=== PATIENT | male | born 1995 | race Caucasian/White ===

== ENCOUNTER 2018-06-23 21:58 | Emergency (ER) | payer BC ==
[2018-06-23] MEDS ORDERED: Sodium Chloride 0.9% 1000 ML 1,000 ML IV STA ×2 (22:24→22:31)
[2018-06-23] MEDS ORDERED: Sodium Chloride 0.9% 1000 ML 1,000 ML ONE ×3 (22:40→23:39)
[2018-06-23 22:48] LABS: Appearance CLEAR (CLEAR); Bilirubin NEGATIVE (NEGATIVE); Blood LARGE Ery/ul (0-5); Glucose NEGATIVE (NEGATIVE); Ketones NEGATIVE (NEGATIVE); Leukocyte Esterase NEGATIVE (NEGATIVE); Nitrite NEGATIVE (NEGATIVE); Protein,Urine Dip NEGATIVE (Negative); Specific Gravity 1.004 (1.005-1.025); Urobilinogen NEGATIVE mg/dL (0-1)
[2018-06-23 23:00] LABS: Amphetamine,Urine NEGATIVE (NEGATIVE); Barbiturate,Urine NEGATIVE (NEGATIVE); Benzodiazepine,Urine NEGATIVE (NEGATIVE); Cocaine,Urine NEGATIVE (NEGATIVE); Methadone,Urine NEGATIVE (NEGATIVE); Opiate,Urine NEGATIVE (NEGATIVE); PCP,Urine NEGATIVE (NEGATIVE); THC,Urine NEGATIVE (NEGATIVE)
[2018-06-23 23:53] LABS: BASOPHIL % 0.3 % (0.0-0.4); Basophil (Absolute #) 0.02 (0-0.4); Eosinophil % 1.9 % (0.00-5.0); Eosinophil (Absolute #) 0.13 (0-0.5); Granulocyte Absolute (ANC) 3.61 (1.4-6.9); Hematocrit 39.8 % (42-50); Hemoglobin 14.4 gm/dl (12.5-18.0); Lymphocytes % 31.4 % (24.0-44.0); Mean Cell Volume 88.8 fl (78-100); Mean Corpuscular Hemoglobin 32.1 pg (26-32); Mean Corpuscular Hgb Concent. 36.2 g/dl (32-36); Mean Platelet Volume 9.9 fl (6-9.5); Monocyte (Absolute #) 0.83 (0.0-1.3); Monocytes % 12.4 % (0.0-12.0); Platelet Count 288 K/mm3 (150-450); Red Blood Count 4.48 M/mm3 (4.1-5.6); Red Cell Distribution Width 12.8 % (11.5-14.0); White Blood Count 6.7 K/mm3 (4.0-10.5)
[2018-06-24 00:16] LABS: ANION GAP 10.4 MEQ/L (5-15); BLOOD UREA NITROGEN 17 mg/dL (9-20); CHLORIDE 105 mmol/L (98-107); Calcium 9.3 mg/dL (8.4-10.2); Carbon Dioxide 29 mmol/L (22-30); Creatinine 1 0.92 mg/dL (0.66-1.25); Glucose 100 mg/dL (74-106); Potassium 3.4 mmol/L (3.5-5.1); SODIUM 141 mmol/L (137-145)
[2018-06-24 00:24] VITALS: O2SAT 98
[2018-06-24 02:03] VITALS: BP 122/74; PULSE 71
--- NOTE | 2018-06-24 02:03 | ERPHSYRPT ---
- History of Present Illness Time Seen by Provider: 06/23/18 22:10 Source: patient Patient Subjective Stated Complaint: pt is alert and oriented. pt is ambulatory with a steady gait. pt comes in with c/o hematuria. pt states his he was having blood in his urine begining this morning. pt denies flank pain, dysuria, frequency, hesitency, prior kidney stones, or any pain. pt states the only pain he has is from working out a couple days ago. pt urine is clear and yellow. Triage Nursing Assessment: see above Physician History: PATIENT STATES AFTER LIFTING WEIGHTS FOR 2 HOURS YESTERDAY, HE NOTICED HEMATURIA THIS MORNING. DENIES FREQUENCY, URGENCY, DYSURIA, OR ABDOMINAL PAIN. HE COMPLAINS OF LEFT SIDED UPPER ABDOMINAL PAIN. DENIES NAUSEA, EMESIS OR FEVER. Timing/Duration: yesterday Activites at Onset: physical activity Quality: aching Onset Location: left flank Pain Radiation: none Severity of Pain-Max: mild Severity of Pain-Current: none Modifying Factors: Improves With: nothing Associated Symptoms: other (HEMATURIA) Prior abdominal problems: none Sexual intercourse history: non-contributory Allergies/Adverse Reactions: cefaclor Allergy (Verified 06/23/18 22:15) pertussis vaccine,adsorbed Allergy (Verified 06/23/18 22:15) Home Medications: No Reportable Medications [No Reported Medications] 06/23/18 [History] Immunizations Up to Date: Yes - Past Medical History Pertinent Past Medical History: No - Past Surgical History Past Surgical History: Yes Neuro Surgical History: No Pertinent History Cardiac: No Pertinent History Respiratory: No Pertinent History Gastrointestinal: No Pertinent History Genitourinary: No Pertinent History Musculoskeletal: No Pertinent History Male Surgical History: No Pertinent History - Social History Smoking Status: Never smoker Drug Use: none - Review of Systems Constitutional: No Fever, No Chills Eyes: No Symptoms Ears, Nose, & Throat: No Symptoms Respiratory: No Symptoms, No Cough, No Dyspnea Cardiac: No Symptoms, No Chest Pain, No Edema, No Syncope Abdominal/Gastrointestinal: No Symptoms, No Abdominal Pain, No Nausea, No Vomiting, No Diarrhea Genitourinary Symptoms: Hematuria, No Dysuria Musculoskeletal: No Symptoms, No Back Pain, No Neck Pain Skin: No Rash Neurological: No Dizziness, No Focal Weakness, No Sensory Changes Psychological: No Symptoms Endocrine: No Symptoms All Other Systems: Reviewed and Negative - Nursing Vital Signs Nursing Vital Signs: Initial Vital Signs Pulse Rate 90 06/23/18 21:59 Respiratory Rate 18 06/23/18 21:59 Blood Pressure 142/83 06/23/18 21:59 O2 Sat by Pulse Oximetry 98 06/23/18 21:59 Pain Scale Pain Intensity 2 - Physical Exam General Appearance: no apparent distress, alert Eye Exam: PERRL/EOMI Ears, Nose, Throat Exam: pharynx normal, moist mucous membranes Neck Exam: normal inspection, supple Respiratory Exam: normal breath sounds, lungs clear Cardiovascular Exam: regular rate/rhythm, No edema Gastrointestinal/Abdomen Exam: soft, normal bowel sounds, No tenderness Back Exam: normal inspection, other (NO CVA TENDERNESSS), No CVA tenderness Extremity Exam: normal inspection, normal range of motion, No pedal edema Neurologic Exam: alert, oriented x 3, cooperative, sensation nml, No motor deficits Skin Exam: normal color, warm, dry, No rash SpO2 Interpretation: normal SpO2: 98 - CT Exams Abdomen/Pelvis CT Interpretation: Tele-radiologist Report (POSSIBLE UNDESCENDE TESTICLE ON RIGHT) Ordered Tests: Active Orders 24 hr Category Date Time Status IV Insertion STAT Care 06/23/18 22:24 Active ABDOMEN AND PELVIS W/0 CONTRAS [CT] Stat Exams 06/23/18 22:25 Taken CBC W DIFF Stat Lab 06/23/18 22:24 Completed Lactic Acid Stat Lab 06/23/18 22:35 Completed UA W/RFX UR CULTURE Stat Lab 06/23/18 22:33 Completed Urine Triage Profile Stat Lab 06/23/18 22:33 Completed Medication Summary Discontinued Medications Generic Name Dose Route Start Last Admin Trade Name Roni PRN Reason Stop Dose Admin Sodium Chloride 1,000 mls @ 999 mls/hr 06/23/18 22:24 06/23/18 23:40 Sodium Chloride 0.9% 1000 Ml IV 06/23/18 23:24 Infused .Q1H1M STA Infusion Sodium Chloride 1,000 mls @ 999 mls/hr 06/23/18 22:31 06/24/18 02:13 Sodium Chloride 0.9% 1000 Ml IV 06/23/18 23:31 Infused .Q1H1M STA Infusion Sodium Chloride Confirm 06/23/18 22:40 Sodium Chloride 0.9% 1000 Ml Administered 06/23/18 22:41 Dose 1,000 mls @ ud .ROUTE .STK-MED ONE Sodium Chloride Confirm 06/23/18 23:31 Sodium Chloride 0.9% 1000 Ml Administered 06/23/18 23:32 Dose 1,000 mls @ ud .ROUTE .STK-MED ONE Sodium Chloride Confirm 06/23/18 23:39 Sodium Chloride 0.9% 1000 Ml Administered 06/23/18 23:40 Dose 1,000 mls @ ud .ROUTE .STK-MED ONE Lab/Rad Data: Laboratory Result Diagrams 06/23/18 22:24 06/23/18 00:15 Laboratory Results 06/23/18 06/23/18 06/23/18 Range/Units 22:35 22:33 22:33 WBC (4.0-10.5) K/mm3 RBC (4.1-5.6) M/mm3 Hgb (12.5-18.0) gm/dl Hct (42-50) % MCV (78-100) fl MCH (26-32) pg MCHC (32-36) g/dl RDW (11.5-14.0) % Plt Count (150-450) K/mm3 MPV (6-9.5) fl Gran % (36.0-66.0) % Eos # (Auto) (0-0.5) Absolute Lymphs (auto) (1.0-4.6) Absolute Monos (auto) (0.0-1.3) Lymphocytes % (24.0-44.0) % Monocytes % (0.0-12.0) % Eosinophils % (0.00-5.0) % Basophils % (0.0-0.4) % Absolute Granulocytes (1.4-6.9) Basophils # (0-0.4) Sodium (137-145) mmol/L Potassium (3.5-5.1) mmol/L Chloride (98-107) mmol/L Carbon Dioxide (22-30) mmol/L Anion Gap (5-15) MEQ/L BUN (9-20) mg/dL Creatinine (0.66-1.25) mg/dL Estimated GFR ML/MIN Glucose (74-106) mg/dL Lactic Acid 1.2 (0.4-2.0) Calcium (8.4-10.2) mg/dL Urine Color STRAW (YELLOW) Urine Appearance CLEAR (CLEAR) Urine pH 7.0 (5-6) Ur Specific [place] 1.004 (1.005-1.025) Urine Protein NEGATIVE (Negative) Urine Ketones NEGATIVE (NEGATIVE) Urine Blood LARGE (0-5) [place]/ul Urine Nitrite NEGATIVE (NEGATIVE) Urine Bilirubin NEGATIVE (NEGATIVE) Urine Urobilinogen NEGATIVE (0-1) mg/dL Ur Leukocyte Esterase NEGATIVE (NEGATIVE) Urine WBC (Auto) NONE (0-5) /HPF Urine RBC (Auto) NONE (0-2) /HPF U Epithel Cells (Auto) NONE (FEW) /HPF Urine Bacteria (Auto) NONE (NEGATIVE) /HPF Urine Culture Reflexed NO (NO) Urine Glucose NEGATIVE (NEGATIVE) mg/dL Urine Opiates Level NEGATIVE (NEGATIVE) Ur Methadone NEGATIVE (NEGATIVE) Urine Barbiturates NEGATIVE (NEGATIVE) Ur Phencyclidine (PCP) NEGATIVE (NEGATIVE) Urine Amphetamine NEGATIVE (NEGATIVE) U Benzodiazepine Level NEGATIVE (NEGATIVE) Urine Cocaine NEGATIVE (NEGATIVE) Urine Marijuana (THC) NEGATIVE (NEGATIVE) 06/23/18 06/23/18 Range/Units 22:24 00:15 WBC 6.7 (4.0-10.5) K/mm3 RBC 4.48 (4.1-5.6) M/mm3 Hgb 14.4 (12.5-18.0) gm/dl Hct 39.8 L (42-50) % MCV 88.8 (78-100) fl MCH 32.1 H (26-32) pg MCHC 36.2 H (32-36) g/dl RDW 12.8 (11.5-14.0) % Plt Count 288 (150-450) K/mm3 MPV 9.9 H (6-9.5) fl Gran % 54.0 (36.0-66.0) % Eos # (Auto) 0.13 (0-0.5) Absolute Lymphs (auto) 2.10 (1.0-4.6) Absolute Monos (auto) 0.83 (0.0-1.3) Lymphocytes % 31.4 (24.0-44.0) % Monocytes % 12.4 H (0.0-12.0) % Eosinophils % 1.9 (0.00-5.0) % Basophils % 0.3 (0.0-0.4) % Absolute Granulocytes 3.61 (1.4-6.9) Basophils # 0.02 (0-0.4) Sodium 141 (137-145) mmol/L Potassium 3.4 L (3.5-5.1) mmol/L Chloride 105 (98-107) mmol/L Carbon Dioxide 29 (22-30) mmol/L Anion Gap 10.4 (5-15) MEQ/L BUN 17 (9-20) mg/dL Creatinine 0.92 (0.66-1.25) mg/dL Estimated GFR > 60.0 ML/MIN Glucose 100 (74-106) mg/dL Lactic Acid (0.4-2.0) Calcium 9.3 (8.4-10.2) mg/dL Urine Color (YELLOW) Urine Appearance (CLEAR) Urine pH (5-6) Ur Specific [place] (1.005-1.025) Urine Protein (Negative) Urine Ketones (NEGATIVE) Urine Blood (0-5) [place]/ul Urine Nitrite (NEGATIVE) Urine Bilirubin (NEGATIVE) Urine Urobilinogen (0-1) mg/dL Ur Leukocyte Esterase (NEGATIVE) Urine WBC (Auto) (0-5) /HPF Urine RBC (Auto) (0-2) /HPF U Epithel Cells (Auto) (FEW) /HPF Urine Bacteria (Auto) (NEGATIVE) /HPF Urine Culture Reflexed (NO) Urine Glucose (NEGATIVE) mg/dL Urine Opiates Level (NEGATIVE) Ur Methadone (NEGATIVE) Urine Barbiturates (NEGATIVE) Ur Phencyclidine (PCP) (NEGATIVE) Urine Amphetamine (NEGATIVE) U Benzodiazepine Level (NEGATIVE) Urine Cocaine (NEGATIVE) Urine Marijuana (THC) (NEGATIVE) - Departure Departure Disposition: Home Clinical Impression: Microhematuria, UNDESCENDED 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 TAKE COPY OF ABDOMINAL CT SCAN TO APPOINTMENT. VOID THROUGH STRAINER FOR 4 DAYS.
--- NOTE | 2018-06-24 08:07 | XRAY ---
Indication: Left flank pain. Hematuria. Multiple contiguous axial images obtained through the abdomen and pelvis without contrast using renal stone protocol. Comparison: None Lung bases are clear. Heart is not enlarged. No calculus or evidence for obstructive uropathy in either system. Stomach is distended with food/fluid. Noncontrasted stomach and bowel loops appear nonobstructed. Normal appendix. No free fluid/air. There is a 2.6 cm ovoid soft tissue mass in the right lower quadrant adjacent to the inguinal canal, possible undescended testicle. Remaining liver, gallbladder, pancreas, spleen, adrenal glands, kidneys, ureters, bladder, and aorta appear unremarkable for noncontrast exam. Osseous structures intact. No ventral or inguinal hernias. Impression: 1. Negative renal calculus or evidence for obstructive uropathy. 2. Right lower quadrant 2.6 cm ovoid soft tissue mass, possible undescended testicle. 3. Remaining CT abdomen/pelvis without contrast exam is negative. Comment: Preliminary interpretation was made by [facility]. No discrepancy. CTDI 22.96
[2018-06-26 03:23] LABS: CKMB 6.7 ng/mL (0.0-5.0)
== END 2018-06-24 02:28 | disposition home or self-care (01) ==
LOC: ED 21:58
DX: R31.9 Hematuria, unspecified (principal); Q53.10 Unspecified undescended testicle, unilateral
CPT/HCPCS: 36000; 36415; 74176; 80048; 80307; 81001; 82533; 83605; 83874; 85025; 96360; 96361; 99284

== ENCOUNTER 2018-12-18 05:07 | Emergency (ER) | payer BC ==
[2018-12-18] MEDS ORDERED: Sodium Chloride 0.9% 1000 ML 1,000 ML IV STA (05:35)
--- NOTE | 2018-12-18 05:35 | ERPHSYRPT ---
- History of Present Illness Time Seen by Provider: 12/18/18 05:31 Historian: patient, family Patient Subjective Stated Complaint: pt states he has been having lt sided pain intermittently for the last week. states pain has flared up occasionally. c/o nausea, no vomiting. Triage Nursing Assessment: pt alert and oriented, answers questions approp. pt ambulatory with steady gait noted. respirations nonlabored with lungs cta. skin pink warm and dry. abd soft and nontender to light palpation. bowel sounds present x4. Physician History: 23 y/o white male presents with left lower quad abd pain intermittently for a week. Timing/Duration: week(s) (1) Activities at Onset: none Quality: sharpness Abdominal Pain Onset Location: LLQ Pain Radiation: no radiation Severity of Pain-Max: moderate Severity of Pain-Current: mild Associated Symptoms: denies symptoms Previous symptoms: no prior history Allergies/Adverse Reactions: cefaclor Allergy (Verified 12/18/18 05:27) pertussis vaccine,adsorbed Allergy (Verified 12/18/18 05:27) Home Medications: No Reportable Medications [No Reported Medications] 06/23/18 [History] Hx Tetanus, Diphtheria Vaccination/Date Given: Yes Hx Influenza Vaccination/Date Given: No Hx Pneumococcal Vaccination/Date Given: No Immunizations Up to Date: Yes - Review of Systems Constitutional: No Symptoms Eyes: No Symptoms Ears, Nose, & Throat: No Symptoms Respiratory: No Symptoms Cardiac: No Symptoms Abdominal/Gastrointestinal: Abdominal Pain (llq), Other (occassional loose stools) Genitourinary Symptoms: No Symptoms Musculoskeletal: No Symptoms Skin: No Symptoms Neurological: No Symptoms Psychological: No Symptoms Endocrine: No Symptoms Hematologic/Lymphatic: No Symptoms Immunological/Allergic: No Symptoms All Other Systems: Reviewed and Negative - Past Medical History Pertinent Past Medical History: No Neurological History: No Pertinent History ENT History: No Pertinent History Cardiac History: No Pertinent History Respiratory History: No Pertinent History Endocrine Medical History: No Pertinent History Musculoskeletal History: No Pertinent History GI Medical History: No Pertinent History History: No Pertinent History Psycho-Social History: No Pertinent History Male Reproductive Disorders: No Pertinent History - Past Surgical History Past Surgical History: Yes Neuro Surgical History: No Pertinent History Cardiac: No Pertinent History Respiratory: No Pertinent History Gastrointestinal: No Pertinent History Genitourinary: No Pertinent History Musculoskeletal: No Pertinent History Male Surgical History: Testicular Surgery Other Surgical History: or for undescended testicle - Social History Smoking Status: Never smoker Exposure to second hand smoke: No Drug Use: none Patient Lives Alone: No - Nursing Vital Signs Nursing Vital Signs: Initial Vital Signs Temperature 98.7 F 12/18/18 05:13 Pulse Rate 78 12/18/18 05:13 Respiratory Rate 16 12/18/18 05:13 Blood Pressure 141/73 12/18/18 05:13 O2 Sat by Pulse Oximetry 99 12/18/18 05:13 Pain Scale Pain Intensity 6 - Physical Exam General Appearance: mild distress, alert, anxiety Eye Exam: PERRL/EOMI, eyes nml inspection Ears, Nose, Throat Exam: normal ENT inspection, moist mucous membranes Neck Exam: normal inspection, non-tender, supple, full range of motion Respiratory Exam: normal breath sounds, lungs clear, airway intact, No chest tenderness, No respiratory distress Cardiovascular Exam: regular rate/rhythm, normal heart sounds, normal peripheral pulses Gastrointestinal/Abdomen Exam: soft, normal bowel sounds, tenderness (mild llq) , No guarding, No rebound Rectal Exam: not done Back Exam: normal inspection, normal range of motion, No CVA tenderness, No vertebral tenderness Extremity Exam: normal inspection, normal range of motion, pelvis stable Neurologic Exam: alert, oriented x 3, cooperative, lieutenant/deputy II-XII nml as tested Skin Exam: normal color, warm, dry Lymphatic Exam: No adenopathy SpO2 Interpretation: normal SpO2: 99 O2 Delivery: Room Air - Course Nursing assessment & vital signs reviewed: Yes Ordered Tests: Active Orders 24 hr Category Date Time Status IV Insertion STAT Care 12/18/18 05:35 Active ABDOMEN AND PELVIS W/0 CONTRAS [CT] Stat Exams 12/18/18 05:35 Taken AMYLASE Stat Lab 12/18/18 05:35 Completed CBC W DIFF Stat Lab 12/18/18 05:35 Completed CMP Stat Lab 12/18/18 05:35 Completed LIPASE Stat Lab 12/18/18 05:35 Completed Lactic Acid Stat Lab 12/18/18 05:50 Completed UA W/RFX UR CULTURE Stat Lab 12/18/18 05:36 Completed Medication Summary Discontinued Medications Generic Name Dose Route Start Last Admin Trade Name Freq PRN Reason Stop Dose Admin Hydromorphone HCl 0.5 mg 12/18/18 05:53 12/18/18 06:01 Hydromorphone 1 Mg/Ml Ampule IV 12/18/18 05:54 0.5 mg STAT ONE Administration Hydromorphone HCl Confirm 12/18/18 05:58 Hydromorphone 1 Mg/Ml Ampule Administered 12/18/18 05:59 Dose 1 mg .ROUTE .STK-MED ONE Sodium Chloride 1,000 mls @ 999 mls/hr 12/18/18 05:35 12/18/18 06:40 Sodium Chloride 0.9% 1000 Ml IV 12/18/18 06:35 Infused .Q1H1M STA Infusion Sodium Chloride Confirm 12/18/18 05:37 Sodium Chloride 0.9% 1000 Ml Administered 12/18/18 05:38 Dose 1,000 mls @ ud .ROUTE .STK-MED ONE Ondansetron HCl 4 mg 12/18/18 05:53 12/18/18 06:01 Zofran 4 Mg/2 Ml Vial IV 12/18/18 05:54 4 mg STAT ONE Administration Ondansetron HCl Confirm 12/18/18 05:57 Zofran 4 Mg/2 Ml Vial Administered 12/18/18 05:58 Dose 4 mg .ROUTE .STK-MED ONE Lab/Rad Data: Laboratory Result Diagrams 12/18/18 05:35 12/18/18 05:35 Laboratory Results 12/18/18 12/18/18 12/18/18 Range/Units 05:50 05:36 05:35 WBC (4.0-10.5) K/mm3 RBC (4.1-5.6) M/mm3 Hgb (12.5-18.0) gm/dl Hct (42-50) % MCV (78-100) fl MCH (26-32) pg MCHC (32-36) g/dl RDW (11.5-14.0) % Plt Count (150-450) K/mm3 MPV (6-9.5) fl Gran % (36.0-66.0) % Eos # (Auto) (0-0.5) Absolute Lymphs (auto) (1.0-4.6) Absolute Monos (auto) (0.0-1.3) Lymphocytes % (24.0-44.0) % Monocytes % (0.0-12.0) % Eosinophils % (0.00-5.0) % Basophils % (0.0-0.4) % Absolute Granulocytes (1.4-6.9) Basophils # (0-0.4) Sodium 143 (137-145) mmol/L Potassium 4.2 (3.5-5.1) mmol/L Chloride 102 (98-107) mmol/L Carbon Dioxide 29 (22-30) mmol/L Anion Gap 16.6 H (5-15) MEQ/L BUN 15 (9-20) mg/dL Creatinine 1.10 (0.66-1.25) mg/dL Estimated GFR > 60.0 ML/MIN Glucose 96 (74-106) mg/dL Lactic Acid 0.9 (0.4-2.0) Calcium 9.8 (8.4-10.2) mg/dL Total Bilirubin 0.50 (0.2-1.3) mg/dL AST 60 H (17-59) U/L ALT 129 H (0-50) U/L Alkaline Phosphatase 36 L (38-126) U/L Serum Total Protein 8.0 (6.3-8.2) g/dL Albumin 4.6 (3.5-5.0) g/dL Amylase 60 (30-110) U/L Lipase 51 (23-300) U/L Urine Color YELLOW (YELLOW) Urine Appearance CLEAR (CLEAR) Urine pH 6.0 (5-6) Ur Specific [place] 1.020 (1.005-1.025) Urine Protein NEGATIVE (Negative) Urine Ketones NEGATIVE (NEGATIVE) Urine Blood NEGATIVE (0-5) [place]/ul Urine Nitrite NEGATIVE (NEGATIVE) Urine Bilirubin NEGATIVE (NEGATIVE) Urine Urobilinogen NEGATIVE (0-1) mg/dL Ur Leukocyte Esterase NEGATIVE (NEGATIVE) Urine WBC (Auto) NONE (0-5) /HPF Urine RBC (Auto) NONE (0-2) /HPF U Epithel Cells (Auto) NONE (FEW) /HPF Urine Bacteria (Auto) NONE (NEGATIVE) /HPF Urine Mucus (Auto) SLIGHT (NEGATIVE) /HPF Urine Culture Reflexed NO (NO) Urine Glucose NEGATIVE (NEGATIVE) mg/dL 12/18/18 Range/Units 05:35 WBC 6.4 (4.0-10.5) K/mm3 RBC 4.94 (4.1-5.6) M/mm3 Hgb 15.8 (12.5-18.0) gm/dl Hct 45.0 (42-50) % MCV 91.1 (78-100) fl MCH 32.0 (26-32) pg MCHC 35.1 (32-36) g/dl RDW 13.0 (11.5-14.0) % Plt Count 281 (150-450) K/mm3 MPV 9.6 H (6-9.5) fl Gran % 54.4 (36.0-66.0) % Eos # (Auto) 0.13 (0-0.5) Absolute Lymphs (auto) 1.90 (1.0-4.6) Absolute Monos (auto) 0.82 (0.0-1.3) Lymphocytes % 29.9 (24.0-44.0) % Monocytes % 12.9 H (0.0-12.0) % Eosinophils % 2.0 (0.00-5.0) % Basophils % 0.8 (0.0-0.4) % Absolute Granulocytes 3.45 (1.4-6.9) Basophils # 0.05 (0-0.4) Sodium (137-145) mmol/L Potassium (3.5-5.1) mmol/L Chloride (98-107) mmol/L Carbon Dioxide (22-30) mmol/L Anion Gap (5-15) MEQ/L BUN (9-20) mg/dL Creatinine (0.66-1.25) mg/dL Estimated GFR ML/MIN Glucose (74-106) mg/dL Lactic Acid (0.4-2.0) Calcium (8.4-10.2) mg/dL Total Bilirubin (0.2-1.3) mg/dL AST (17-59) U/L ALT (0-50) U/L Alkaline Phosphatase (38-126) U/L Serum Total Protein (6.3-8.2) g/dL Albumin (3.5-5.0) g/dL Amylase (30-110) U/L Lipase (23-300) U/L Urine Color (YELLOW) Urine Appearance (CLEAR) Urine pH (5-6) Ur Specific [place] (1.005-1.025) Urine Protein (Negative) Urine Ketones (NEGATIVE) Urine Blood (0-5) [place]/ul Urine Nitrite (NEGATIVE) Urine Bilirubin (NEGATIVE) Urine Urobilinogen (0-1) mg/dL Ur Leukocyte Esterase (NEGATIVE) Urine WBC (Auto) (0-5) /HPF Urine RBC (Auto) (0-2) /HPF U Epithel Cells (Auto) (FEW) /HPF Urine Bacteria (Auto) (NEGATIVE) /HPF Urine Mucus (Auto) (NEGATIVE) /HPF Urine Culture Reflexed (NO) Urine Glucose (NEGATIVE) mg/dL - Progress Progress: improved, re-examined Progress Note: 12/18/18 07:15 ct abd/pelvis-no acute abnormality Counseled pt/family regarding: lab results, diagnosis, need for follow-up, rad results - Departure Departure Disposition: Home Clinical Impression: Abdominal pain Condition: Stable Critical Care Time: No Additional Instructions: clear liquid diet. follow up with primary doctor for further management
[2018-12-18] MEDS ORDERED: Sodium Chloride 0.9% 1000 ML 1,000 ML ONE (05:37)
[2018-12-18 05:40] LABS: Absolute Neutrophil Ct (ANC) 3.45 (1.4-6.9); BASOPHIL % 0.8 % (0.0-0.4); Basophil (Absolute #) 0.05 (0-0.4); Eosinophil (Absolute #) 0.13 (0-0.5); Hemoglobin 15.8 gm/dl (12.5-18.0); Lymphocytes % 29.9 % (24.0-44.0); Mean Cell Volume 91.1 fl (78-100); Mean Corpuscular Hgb Concent. 35.1 g/dl (32-36); Mean Platelet Volume 9.6 fl (6-9.5); Monocyte (Absolute #) 0.82 (0.0-1.3); Monocytes % 12.9 % (0.0-12.0); Neutrophil % 54.4 % (36.0-66.0); Platelet Count 281 K/mm3 (150-450); Red Blood Count 4.94 M/mm3 (4.1-5.6); White Blood Count 6.4 K/mm3 (4.0-10.5)
[2018-12-18 05:43] LABS: Appearance CLEAR (CLEAR); Bilirubin NEGATIVE (NEGATIVE); Blood NEGATIVE Ery/ul (0-5); Glucose NEGATIVE (NEGATIVE); Ketones NEGATIVE (NEGATIVE); Leukocyte Esterase NEGATIVE (NEGATIVE); Mucus SLIGHT /HPF (NEGATIVE); Nitrite NEGATIVE (NEGATIVE); Protein,Urine Dip NEGATIVE (Negative); Urobilinogen NEGATIVE mg/dL (0-1)
[2018-12-18] MEDS ORDERED: Hydromorphone 1 mg/ml Ampule IV ONE (05:53)
[2018-12-18] MEDS ORDERED: Zofran 4 MG/2 ML VIAL IV ONE (05:53)
[2018-12-18 05:57] LABS: ALBUMIN 4.6 g/dL (3.5-5.0); ALKALINE PHOSPHATASE 36 U/L (38-126); AMYLASE 60 U/L (30-110); ANION GAP 16.6 MEQ/L (5-15); BLOOD UREA NITROGEN 15 mg/dL (9-20); CHLORIDE 102 mmol/L (98-107); Calcium 9.8 mg/dL (8.4-10.2); Carbon Dioxide 29 mmol/L (22-30); Glucose 96 mg/dL (74-106); LIPASE 51 U/L (23-300); Potassium 4.2 mmol/L (3.5-5.1); SGOT/AST 60 U/L (17-59); SGPT/ALT 129 U/L (0-50); SODIUM 143 mmol/L (137-145)
[2018-12-18] MEDS ORDERED: Zofran 4 MG/2 ML VIAL ONE (05:57)
[2018-12-18] MEDS ORDERED: Hydromorphone 1 mg/ml Ampule ONE (05:58)
[2018-12-18 07:11] VITALS: BP 104/55; PULSE 70
[2018-12-18 07:16] VITALS: O2SAT 99
--- NOTE | 2018-12-18 09:49 | XRAY ---
Indication: Left lower quadrant pain. Diarrhea. Multiple contiguous axial images obtained through the abdomen and pelvis without contrast as ordered. Comparison: June 23, 2018. Lung bases remaining clear. Heart is not enlarged. Noncontrasted stomach and bowel loops appear nonobstructed. Normal appendix. There is mild diffuse scattered colonic fecal debris throughout. No free fluid/air. Spleen remains enlarged today measuring 14.4 cm. Remaining liver, gallbladder, pancreas, spleen, adrenal glands, kidneys, ureters, bladder, and aorta appear unremarkable for noncontrast exam. Interval surgical repair for undescended right testicle. Osseous structures intact. No ventral or inguinal hernias. Impression: 1. Mild fecal stasis without obstruction. 2. Incidental splenomegaly. 3. Remaining CT abdomen/pelvis without contrast exam is negative. Comment: Preliminary interpretation was made by [facility]. No critical discrepancy. CTDI 20.50
== END 2018-12-18 07:32 | disposition home or self-care (01) ==
LOC: ED 05:07
DX: R10.32 Left lower quadrant pain (principal)
CPT/HCPCS: 36000; 36415; 74176; 80053; 81001; 82150; 83605; 83690; 85025; 96360; 96374; 96375; 99284; J1170; J2405